=== PATIENT | male | born 1990 | race Two or more races ===

== ENCOUNTER 2017-09-12 18:27 | Emergency (ER) | payer OTHER ==
[2017-09-12 18:33] VITALS: BMI 45.8
[2017-09-12] MEDS ORDERED: IBUPROFEN 400 MG TABLET (FP) PO ONE (18:33)
--- NOTE | 2017-09-12 19:25 | PDOC ---
History of Present Illness - General History Source: Patient Exam Limitations: No Limitations - History of Present Illness Initial Comments: 09/12/17 20:31 The patient is a 26-year-old male with a significant past medical history of asthma, and presents to the emergency department with fever, nausea, vomiting, and diffuse abdominal pain since this morning. He reports he spiked a fever twice, and had four episodes of non-bloody vomiting. He also reports an associated sore throat and productive cough with production of green sputum. He denies any sick contacts. The patient denies chest pain, shortness of breath, headache and dizziness. The patient denies chills, diarrhea and constipation. The patient denies dysuria, frequency, urgency and hematuria. Allergies: NKDA Past Surgical History: None reported Social History: No toxic habits reported PCP: Dr. Nichole Raphael <Pearl Mccullough - Last Filed: 09/12/17 20:46> <Andra Worley - Last Filed: 09/12/17 21:11> - General Chief Complaint: Nausea/Vomiting Stated Complaint: FEVER Time Seen by Provider: 09/12/17 19:17 Past History <Pearl Mccullough - Last Filed: 09/12/17 20:46> - Past Medical History Asthma: Yes COPD: No DVT: No - Suicide/Smoking/Psychosocial Hx Smoking History: Never smoked Hx Alcohol Use: Yes (SOCIAL) Drug/Substance Use Hx: No Substance Use Type: None <Andra Worley - Last Filed: 09/12/17 21:11> - Past Medical History Allergies/Adverse Reactions: Allergies Allergy/AdvReac Type Severity Reaction Status Date / Time No Known Allergies Allergy Verified 09/12/17 18:32 Home Medications: Ambulatory Orders Oseltamivir Phosphate [Tamiflu] 75 mg PO BID #10 capsule 09/12/17 Review of Systems - Review of Systems Able to Perform ROS?: Yes Comments:: 09/12/17 20:31 GENERAL/CONSTITUTIONAL: (+) Fever. No chills. No weakness. HEAD, EYES, EARS, NOSE AND THROAT: No change in vision. No ear pain or discharge. (+) Sore throat. CARDIOVASCULAR: No chest pain or shortness of breath. RESPIRATORY: (+) Cough. No wheezing, or hemoptysis. GASTROINTESTINAL: (+) Abdominal pain. (+) Nausea, (+) vomiting. No diarrhea or constipation. GENITOURINARY: No dysuria, frequency, or change in urination. MUSCULOSKELETAL: No joint or muscle swelling or pain. No neck or back pain. SKIN: No rash NEUROLOGIC: No headache, vertigo, loss of consciousness, or change in strength/ sensation. ENDOCRINE: No increased thirst. No abnormal weight change. HEMATOLOGIC/LYMPHATIC: No anemia, easy bleeding, or history of blood clots. ALLERGIC/IMMUNOLOGIC: No hives or skin allergy. <Pearl Mccullough - Last Filed: 09/12/17 20:46> *Physical Exam - Vital Signs Last Vital Signs Temp Pulse Resp BP Pulse Ox 101.7 F H 128 H 22 130/82 98 09/12/17 18:28 09/12/17 18:28 09/12/17 18:28 09/12/17 18:28 09/12/17 18:28 - Physical Exam Comments: 09/12/17 20:46 GENERAL: Awake, alert, and fully oriented, in no acute distress HEAD: No signs of trauma EYES: PERRLA, EOMI, sclera anicteric, conjunctiva clear ENT: Auricles normal inspection, hearing grossly normal, nares patent, oropharynx clear without exudates. NECK: Normal ROM, supple, no lymphadenopathy, JVD, or masses LUNGS: (+) Patchy wheezes bilaterally. No crackles HEART: Regular rate and rhythm, normal S1 and S2, no murmurs, rubs or gallops ABDOMEN: Soft, nontender, normoactive bowel sounds. No guarding, no rebound. No masses EXTREMITIES: Normal range of motion, no edema. No clubbing or cyanosis. No cords, erythema, or tenderness NEUROLOGICAL: Cranial nerves II through XII grossly intact. Normal speech, normal gait SKIN: Warm, Dry, normal turgor, no rashes or lesions noted. <Pearl Mccullough - Last Filed: 09/12/17 20:46> - Vital Signs Last Vital Signs Temp Pulse Resp BP Pulse Ox 101.7 F H 128 H 22 130/82 98 09/12/17 18:28 09/12/17 18:28 09/12/17 18:28 09/12/17 18:28 09/12/17 18:28 <Andra Worley - Last Filed: 09/12/17 21:11> ED Treatment Course - LABORATORY CBC & Chemistry Diagram: 09/12/17 19:45 09/12/17 19:45 - ADDITIONAL ORDERS Additional order review: 09/12/17 19:01 Influenza Types A,B Antigen (ANTHONY) - Final Nasopharyngeal Swab - Final 09/12/17 19:45 RBC 5.28 MCV 83.9 MCHC 34.1 RDW 13.7 MPV 9.3 Neutrophils % 82.2 Lymphocytes % 5.7 L Monocytes % 10.5 H Eosinophils % 0.9 Basophils % 0.7 - Medications Given in the ED: ED Medications Discontinued Medications Generic Name Dose Route Start Last Admin Trade Name Freq PRN Reason Stop Dose Admin Acetaminophen/Codeine Phosphate 3 tab 09/12/17 19:29 09/12/17 20:14 Tylenol # 3 - PO 09/12/17 19:30 3 tab ONCE ONE Administration Albuterol/Ipratropium 1 amp 09/12/17 19:29 09/12/17 19:55 Duoneb - NEB 09/12/17 19:30 1 amp ONCE ONE Administration Ibuprofen 400 mg 09/12/17 18:33 09/12/17 18:33 Motrin - PO 09/12/17 18:34 400 mg NOW ONE Administration Oseltamivir Phosphate 75 mg 09/12/17 20:19 09/12/17 20:23 Tamiflu - PO 09/12/17 20:20 75 mg ONCE ONE Administration Sodium Chloride 1,000 ml 09/12/17 19:29 09/12/17 19:55 Normal Saline - IV 09/12/17 19:30 1,000 ml ONCE ONE Administration <Pearl Mccullough - Last Filed: 09/12/17 20:46> - LABORATORY CBC & Chemistry Diagram: 09/12/17 19:45 09/12/17 19:45 - Medications Given in the ED: ED Medications Discontinued Medications Generic Name Dose Route Start Last Admin Trade Name Freq PRN Reason Stop Dose Admin Ibuprofen 400 mg 09/12/17 18:33 09/12/17 18:33 Motrin - PO 09/12/17 18:34 400 mg NOW ONE Administration <Andra Worley - Last Filed: 09/12/17 21:11> Medical Decision Making - Medical Decision Making 09/12/17 20:34 Pt has influenza; his cxr appears normal and he has normal CBC; chem pending. He received IVF, and he is feeling better after motrin and tyl#3 09/12/17 21:11 chem normal and pt feeling better; he was discharged home. <Andra Worley - Last Filed: 09/12/17 21:11> *DC/Admit/Observation/Transfer - Attestations Scribe Attestion: 09/12/17 20:31 Documentation prepared by Pearl Mccullough, acting as medical fee clerk for Andra Worley MD/DO. <Pearl Mccullough - Last Filed: 09/12/17 20:46> - Discharge Dispostion Admit: No <Andra Worley - Last Filed: 09/12/17 21:11> Diagnosis at time of Disposition: Influenza - Discharge Dispostion Disposition: HOME Condition at time of disposition: Improved - Prescriptions Prescriptions: Oseltamivir Phosphate [Tamiflu] 75 mg PO BID #10 capsule - Referrals Referrals: Nichole Raphael MD [Primary Care Provider] - - Patient Instructions Printed Discharge Instructions: Influenza - Post Discharge Activity
[2017-09-12] MEDS ORDERED: SODIUM CHLORIDE 0.9% 500 ML INFUS.BAG IV ONE (19:29)
[2017-09-12] MEDS ORDERED: ACETAMINOPHEN WITH CODEINE 300MG/30MG TABLET PO ONE (19:29)
[2017-09-12] MEDS ORDERED: ALBUTEROL SO4 2.5/IPRATROPIUM 0.5 INH SOL 3 ML VIAL.NEB. NEB ONE ×2 (19:29→19:39)
[2017-09-12 19:52] LABS: BASO % 0.7 % (0-2.0); EOS % 0.9 % (0-4.5); HEMATOCRIT 44.3 % (35.4-49); HEMOGLOBIN 15.1 GM/dL (11.7-16.9); LYMPH % 5.7 % (8-40); MCH 28.6 pg (25.7-33.7); MCHC 34.1 g/dl (32.0-35.9); MEAN CELL VOLUME 83.9 fl (80-96); MEAN PLT VOLUME 9.3 fl (7.5-11.1); MONO % 10.5 % (3.8-10.2); NEUT % 82.2 % (42.8-82.8); PLATELET COUNT 232 K/MM3 (134-434); RBC 5.28 M/mm3 (4.00-5.60); RDW 13.7 % (11.9-15.9); WHITE BLOOD COUNT 8.1 K/mm3 (4.0-10.0)
[2017-09-12] MEDS ORDERED: ACETAMINOPHEN WITH CODEINE 300MG/30MG TABLET ONE (20:12)
[2017-09-12] MEDS ORDERED: OSELTAMIVIR PHOSPHATE 75 MG CAPSULE PO ONE (20:19)
[2017-09-12] MEDS ORDERED: OSELTAMIVIR PHOSPHATE 75 MG CAPSULE ONE (20:22)
[2017-09-12 20:23] LABS: ALBUMIN 4.3 g/dl (3.4-5.0); ALK PHOS 71 U/L (45-117); ANION GAP 6 (8-16); BILIRUBIN,TOTAL 0.7 mg/dL (0.2-1.0); BLOOD UREA NITROGEN 10 mg/dL (7-18); CALCIUM 8.4 mg/dL (8.5-10.1); CHLORIDE 104 mmol/L (98-107); CO2 25 mmol/L (21-32); CREATININE 1.1 mg/dL (0.7-1.3); GLUCOSE,RANDOM 96 mg/dL (74-106); SGOT/AST 33 U/L (15-37); SGPT/ALT 66 U/L (12-78); SODIUM 135 mmol/L (136-145); TOT PROT 7.7 g/dl (6.4-8.2)
[2017-09-12 20:41] VITALS: BP 128/72; PULSE 82; TEMP 99.1
== END 2017-09-12 20:49 | disposition home or self-care (01) ==
LOC: JER 18:27
PROC: 3E0F7GC Introduction of Other Therapeutic Substance into Respiratory Tract, Via Natural or Artificial Opening (ICD-10-PCS; principal; 2017-09-12)
DX: J09.X2 Influenza due to identified novel influenza A virus with other respiratory manifestations (principal)
CPT/HCPCS: 36415; 71046-TC; 80053; 85025; 87804; 94640; 99283-25

== ENCOUNTER 2018-07-17 17:10 | Emergency (ER) | payer OTHER ==
[2018-07-17 17:17] VITALS: BP 135/81; PULSE 78; TEMP 99.1; BMI 48.7
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
== END 2018-07-17 17:49 | disposition home or self-care (01) ==
LOC: JERFT 17:10
DX: K64.4 Residual hemorrhoidal skin tags (principal)
CPT/HCPCS: 99281-25

== ENCOUNTER 2018-12-02 02:26 | Emergency (ER) | payer OTHER ==
[2018-12-02 03:01] VITALS: BP 141/95; PULSE 90; TEMP 98.3; BMI 47.0
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
== END 2018-12-02 05:11 | disposition home or self-care (01) ==
LOC: JER 02:26
DX: S06.0X0A Concussion without loss of consciousness, initial encounter (principal); Y04.2XXA Assault by strike against or bumped into by another person, initial encounter; Y93.89 Activity, other specified; Y92.89 Other specified places as the place of occurrence of the external cause; Y99.8 Other external cause status; Y07.9 Unspecified perpetrator of maltreatment and neglect
CPT/HCPCS: 70450-TC; 70486-TC; 72125-TC; 99281-25

== ENCOUNTER 2019-04-14 20:27 | Emergency (ER) | payer OTHER | END 2019-04-14 22:18 | disposition home or self-care (01) | LOC: JER 20:27 ==

== ENCOUNTER 2019-04-16 21:12 | Emergency (ER) | payer OTHER ==
[2019-04-16 21:24] VITALS: BP 135/73; PULSE 130; TEMP 99.9; BMI 51.7
--- NOTE | 2019-04-16 21:46 | PDOC ---
History of Present Illness - General History Source: Patient Exam Limitations: No Limitations - History of Present Illness Initial Comments: 04/16/19 22:15 28M w/ pmh of asthma, HTN presents to [facility] with complaint of nausea and vomiting x4days w/a severe temporal BATEMAN(10/10 severity), sore throat, nonproductive cough, fever(100.5F at home). Emesis was green with streaks of blood. Tried liquid Advil w/ little relief. Was seen in [facility] two days prior and received acetaminophen which provided little relief. Denies rhinorrhea , sick contacts. Does not have an albuterol inhaler at home. Went to [place] 2mo prior. Works in [employer]. Associated Symptoms: reports: cough, fever/chills, nausea/vomiting. denies: syncope, weakness <Claude Nicole - Last Filed: 04/17/19 00:30> <Leo Thibodeaux - Last Filed: 04/17/19 23:07> - General Chief Complaint: SIRS, Suspected/Possible Stated Complaint: Headache and fever Time Seen by Provider: 04/16/19 21:43 Past History - Travel Traveled outside of the country in the last 30 days: No If so, where?: travelled to [place] 2mo prior Close contact w/someone who was outside of country & ill: No - Past Medical History Asthma: Yes Cancer: No COPD: No DVT: No HTN: Yes - Surgical History Abdominal Surgery: No - Family Disease History Family Disease History: Diabetes: Father (HTN), Mother (HTN), Heart Disease: Father, Mother - Suicide/Smoking/Psychosocial Hx Smoking History: Never smoked Have you smoked in the past 12 months: No Information on smoking cessation initiated: No Hx Alcohol Use: Yes (every weekend) Drug/Substance Use Hx: No Substance Use Type: None <Claude Nicole - Last Filed: 04/17/19 00:30> <Leo Thibodeaux - Last Filed: 04/17/19 23:07> - Past Medical History Allergies/Adverse Reactions: Allergies Allergy/AdvReac Type Severity Reaction Status Date / Time No Known Allergies Allergy Verified 04/16/19 21:16 Home Medications: Ambulatory Orders Phenylephrine HCl/[place] Butter [Preparation H Suppository] 1 each RC PRN PRN # 24 supp.rect 07/17/18 Pramoxine HCl/Zinc Oxide [Hemorrhoid 1%-12.5% Ointment] 1 applic TP PRN #1 tube 07/17/18 Albuterol Sulfate Inhaler - [Ventolin HFA Inhaler -] 2 inh PO Q4H PRN #1 inh Amoxicillin - [Amoxicillin 500mg Capsule -] 500 mg PO TID #20 capsule 04/17/19 Review of Systems - Review of Systems Able to Perform ROS?: Yes Is the patient limited Chinese proficient: No Constitutional: Yes: Chills, Fever HEENTM: Yes: Throat Pain, Difficulty Swallowing. No: Eye Pain, Blurred Vision, Double Vision, Nose Congestion Respiratory: Yes: Cough. No: Orthopnea, Shortness of Breath, Productive cough Cardiac (ROS): No: Chest Pain, Irregular Heart Rate, Syncope ABD/GI: Yes: Difficulty Swallowing, Nausea, Vomiting, Other (focal epigastric pain). No: Abdominal Distended, Constipated, Diarrhea : No: Burning, Dysuria Musculoskeletal: No: Muscle Weakness Integumentary: No: Sweating Neurological: Yes: Headache (temporal) <Claude Nicole - Last Filed: 04/17/19 00:30> *Physical Exam - Vital Signs Last Vital Signs Temp Pulse Resp BP Pulse Ox 99.9 F H 130 H 16 135/73 100 04/16/19 21:16 04/16/19 21:16 04/16/19 21:16 04/16/19 21:16 04/16/19 21:16 - Physical Exam General Appearance: No: Apparent Distress HEENT: positive: Tonsillar Exudate (scant purulent exudate to b/l tonsils), Tonsillar Erythema. negative: Pale Conjunctivae, Photophobia, Scleral Icterus ( R), Scleral Icterus (L), Rhinorrhea Neck: positive: Trachea midline, Supple. negative: Tender, Lymphadenopathy (R) , Lymphadenopathy (L) Respiratory/Chest: positive: Wheezing (expiratory). negative: Chest Tender, Respiratory Distress, Labored Respiration, Decreased Breath Sounds Cardiovascular: positive: Regular Rate, S1, S2, Tachycardia Gastrointestinal/Abdominal: positive: Soft. negative: Distended, Guarding Extremity: negative: Swelling, Calf Tenderness Integumentary: positive: Dry, Warm Neurologic: positive: Fully Oriented, Alert <Claude Nicole - Last Filed: 04/17/19 00:30> - Vital Signs Last Vital Signs Temp Pulse Resp BP Pulse Ox 99.9 F H 130 H 16 135/73 97 04/16/19 21:16 04/16/19 21:16 04/16/19 21:16 04/16/19 21:16 04/16/19 23:55 <MoreliaLeo - Last Filed: 04/17/19 23:07> ED Treatment Course - LABORATORY CBC & Chemistry Diagram: 04/16/19 22:04 04/16/19 22:04 <Claude Nicole - Last Filed: 04/17/19 00:30> - LABORATORY CBC & Chemistry Diagram: 04/16/19 22:04 04/16/19 22:04 - ADDITIONAL ORDERS Additional order review: 04/16/19 22:20 Blood Culture - Preliminary Blood - Peripheral Venous NO GROWTH OBTAINED AFTER 24 HOURS, INCUBATION TO CONTINUE FOR 4 DAYS. 04/16/19 22:20 Blood Culture - Preliminary Blood - Peripheral Venous NO GROWTH OBTAINED AFTER 24 HOURS, INCUBATION TO CONTINUE FOR 4 DAYS. 04/16/19 22:38 Throat Culture - Preliminary Throat NO BETA HEMOLYTIC STREPTOCOCCI ISOLATED 04/16/19 22:04 RBC 4.91 MCV 82.4 MCHC 34.7 RDW 13.8 MPV 8.4 Neutrophils % 66.7 Lymphocytes % 18.2 D Monocytes % 13.6 H Eosinophils % 0.9 Basophils % 0.6 - RADIOLOGY Radiology Studies Ordered: Category Date Time Status CHEST X-RAY PORTABLE* [RAD] Stat Radiology 04/16/19 21:56 Completed - Medications Given in the ED: ED Medications Discontinued Medications Generic Name Dose Route Start Last Admin Trade Name Freq PRN Reason Stop Dose Admin Acetaminophen 1,000 mg 04/16/19 21:57 04/16/19 22:28 Ofirmev Injection - IVPB 04/16/19 21:58 1,000 mg ONCE ONE Administration Ketorolac Tromethamine 15 mg 04/16/19 23:58 04/17/19 00:19 Toradol Injection - IM 04/16/19 23:59 15 mg ONCE ONE Administration Ondansetron HCl 4 mg 04/16/19 22:13 04/16/19 22:30 Zofran Injection IVPUSH 04/16/19 22:14 4 mg ONCE ONE Administration Sodium Chloride 1,000 ml 04/16/19 21:57 04/16/19 22:28 Normal Saline - IV 04/16/19 21:58 1,000 ml ONCE ONE Administration <Leo Thibodeaux - Last Filed: 04/17/19 23:07> Medical Decision Making - Medical Decision Making 04/16/19 22:31 - fu CBC, CMP, lactate, BCX, UA - fu serology for strep, lyme - fu CXR - administer zofran, ofirmev, 1L NS 04/17/19 00:06 - strep neg -- but CENTOR ~3, will send amoxillicin x10d to pharmacy - still endorsing BATEMAN(04/09 severity), will administer toradol 15mg 04/17/19 00:30 - signed out to Dr Palomares - patient will likely be discharged home if headache improves after Toradol <Claude Nicole - Last Filed: 04/17/19 00:30> *DC/Admit/Observation/Transfer <Claude Nicole - Last Filed: 04/17/19 00:30> <Leo Thibodeaux - Last Filed: 04/17/19 23:07> Diagnosis at time of Disposition: Streptococcal pharyngitis - Discharge Dispostion Disposition: HOME Condition at time of disposition: Good - Prescriptions Prescriptions: Amoxicillin - [Amoxicillin 500mg Capsule -] 500 mg PO TID #20 capsule - Patient Instructions Printed Discharge Instructions: DI for Strep Throat Additional Instructions: You were evaluated for headache, fever, nausea, vomiting, sore throat. When we examined you, we noticed that you had some swelling and exudate from your tonsils concerning for strep throat. Labwork showed a mild increase in you white blood cell count, suggestive of an infection that is most likely viral. Your headache improved with pain medications acetaminophen and toradol. If you have any fevers, please use more tylenol as indicated on the bottle. Please drink a lot of fluids. See your primary doctor in the next 7 days for further care. We have sent a prescription for an antibiotic, please take it twice a day for 10 days, and please take the full course and do not skip doses. Please return to the ED if you experience: - fever of greater than 100.3F that does not improve with Tylenol - inability to tolerate ANY food or drink by mouth - severe confusion - fever with severe neck pain
[2019-04-16] MEDS ORDERED: ACETAMINOPHEN 1000 MG/100 ML VIAL (NON FORMULARY) IVPB ONE (21:57)
[2019-04-16] MEDS ORDERED: SODIUM CHLORIDE 0.9% 1000 ML INFUS.BAG IV ONE (21:57)
[2019-04-16] MEDS ORDERED: ONDANSETRON 4 MG/2 ML VIAL IVPUSH ONE (22:13)
[2019-04-16 22:22] LABS: BASO % 0.6 % (0-2.0); EOS % 0.9 % (0-4.5); HEMATOCRIT 40.5 % (35.4-49); HEMOGLOBIN 14.1 GM/dL (11.7-16.9); LYMPH % 18.2 % (8-40); MCH 28.6 pg (25.7-33.7); MCHC 34.7 g/dl (32.0-35.9); MEAN CELL VOLUME 82.4 fl (80-96); MEAN PLT VOLUME 8.4 fl (7.5-11.1); MONO % 13.6 % (3.8-10.2); NEUT % 66.7 % (42.8-82.8); PLATELET COUNT 258 K/MM3 (134-434); RBC 4.91 M/mm3 (4.00-5.60); RDW 13.8 % (11.9-15.9); WHITE BLOOD COUNT 12.6 K/mm3 (4.0-10.0)
--- NOTE | 2019-04-16 22:25 | PDOC ---
Documentation entered by Chelo Driscoll SCRIBE, acting as scribe for Leo Thibodeaux MD. Leo Thibodeaux MD: This documentation has been prepared by the Yamila sanz Xhesika, SCRIBE, under my direction and personally reviewed by me in its entirety. I confirm that the documentation accurately reflects all work, treatment, procedures, and medical decision making performed by me. Attending Attestation - Resident Resident Name: Claude Nicole - ED Attending Attestation I have performed the following: I have examined & evaluated the patient, The case was reviewed & discussed with the resident, I agree w/resident's findings & plan, Exceptions are as noted - HPI HPI: 04/16/19 22:14 The patient is a 28 year old male with a PMH of HTN and asthma who presents to the ED with 4 days of nausea and vomiting. Patient states he endorsed 6 episodes of greenish emesis with streaks of blood today associated with fever ( 100.5 at home), sore throat, cough, abdominal pain, and a 10/10 temporal headache. The patient was seen here yesterday for similar symptoms and was discharged home with relief of symptoms and normal labs. Patient states he drinks every weekend and his last drink was Thursday. The patient denies blurry vision, chest pain, shortness of breath, and dizziness. Denies fever, chills, diarrhea and constipation. Denies dysuria, frequency, urgency and hematuria. Allergies:, NKDA PCP: Kushal Burdick - Physicial Exam PE: 04/16/19 22:15 Vitals: Triage Vital signs reviewed General Appearance: no acute distress, well nourished well developed, Head: Atraumatic, normocephalic Eyes: Pupils equal reactive round, extraocular movement intact Ears: TM's normal bilaterally; Nose: Nares patent bilaterally;no nasal congestion Throat: (+) exudates to tonsils Neck: Supple;No Nuchal rigidity Chest Wall: Nontender Cardiac: Regular rate and rhythm, no murmurs, no rubs, no gallops, Lungs: Clear to auscultation bilateral, good air movement bilaterally, Abdomen: Soft, nondistended, normal bowel sounds, nontender to palpation Extremities: Full range of motion to all extremities, no cyanosis, clubbing, or edema Skin: Warm and dry, no rashes or lesions, no petechiae Neuro: AOX3; Cranial Nerves 2-12 grossly c intact, Strength intact to all extremities, Sensation intact to all extremities, gait normal - Medical Decision Making 04/17/19 01:41 Patient reports with fever chills body ache and sore throat. Rapid strep again was negative however multiple exudates noted on tonsils concerning for a exudate Laboratory analysis is grossly unchanged from 2 days ago status post Tylenol and fluids patient feels much better tolerating fluids at this point we'll treat with ten-day course of amoxicillin he will return to ED for any severe worsening symptoms or for any concerns Headache has improved neck is supple low suspicion for meningitis Findings, the need for follow-up and strict return instructions discussed with patient.
[2019-04-16] MEDS ORDERED: ACETAMINOPHEN INJECTION 100 ML IVPB ONE (22:27)
[2019-04-16] MEDS ORDERED: ONDANSETRON 4 MG/2 ML VIAL ONE (22:29)
[2019-04-16 23:01] LABS: ALBUMIN 3.5 g/dl (3.4-5.0); BILIRUBIN,TOTAL 0.8 mg/dL (0.2-1); BLOOD UREA NITROGEN 12.3 mg/dL (7-18); POTASSIUM 3.5 mmol/L (3.5-5.1); TOT PROT 7.4 g/dl (6.4-8.2)
[2019-04-16 23:38] LABS: ANISOCYTOSIS 0; MACROCYTOSIS 0; PLATELET ESTIMATE NORMAL
[2019-04-16] MEDS ORDERED: KETOROLAC TROMETHAMINE 30 MG/1 ML VIAL IM ONE (23:58)
[2019-04-17] MEDS ORDERED: KETOROLAC TROMETHAMINE 15 MG/ML VIAL ONE (00:14)
--- NOTE | 2019-04-17 00:42 | PDOC ---
*Physical Exam - Vital Signs Last Vital Signs Temp Pulse Resp BP Pulse Ox 99.9 F H 130 H 16 135/73 97 04/16/19 21:16 04/16/19 21:16 04/16/19 21:16 04/16/19 21:16 04/16/19 23:55 - Physical Exam General Appearance: Yes: Nourished, Appropriately Dressed. No: Apparent Distress HEENT: positive: EOMI, Normal Voice, Symmetrical, Pharyngeal Erythema, Tonsillar Erythema, Nasal Congestion, Hearing Grossly Normal. negative: Muffled /Hoarse voice, Tonsillar Exudate, Excessive drooling, Thrush Neck: positive: Normal Thyroid, Supple. negative: Tender, Lymphadenopathy (R), Lymphadenopathy (L) Respiratory/Chest: positive: Lungs Clear, Normal Breath Sounds. negative: Respiratory Distress, Crackles, Rales, Rhonchi Cardiovascular: positive: Regular Rhythm, Regular Rate. negative: Edema, Murmur Gastrointestinal/Abdominal: positive: Normal Bowel Sounds, Soft. negative: Tender Musculoskeletal: positive: Normal Inspection. negative: CVA Tenderness Extremity: positive: Normal Capillary Refill, Normal Inspection, Normal Range of Motion. negative: Tender Integumentary: positive: Normal Color, Dry, Warm Neurologic: positive: Fully Oriented, Alert, Normal Mood/Affect, Normal Response <Gerardo Palomares - Last Filed: 04/17/19 07:27> - Vital Signs Last Vital Signs Temp Pulse Resp BP Pulse Ox 99.9 F H 130 H 16 135/73 97 04/16/19 21:16 04/16/19 21:16 04/16/19 21:16 04/16/19 21:16 04/16/19 23:55 <Leo Thibodeaux - Last Filed: 04/17/19 23:06> ED Treatment Course - LABORATORY CBC & Chemistry Diagram: 04/16/19 22:04 04/16/19 22:04 - ADDITIONAL ORDERS Additional order review: Laboratory Results 04/16/19 04/16/19 22:20 22:04 Sodium 136 Potassium 3.5 Chloride 102 Carbon Dioxide 26 Anion Gap 8 BUN 12.3 Creatinine 1.0 Est GFR (CKD-EPI)AfAm 119.02 Est GFR (CKD-EPI)NonAf 102.69 Random Glucose 87 Lactic Acid 0.6 Calcium 9.0 Total Bilirubin 0.8 AST 27 ALT 58 Alkaline Phosphatase 81 Total Protein 7.4 Albumin 3.5 04/16/19 22:04 RBC 4.91 MCV 82.4 MCHC 34.7 RDW 13.8 MPV 8.4 Neutrophils % 66.7 Lymphocytes % 18.2 D Monocytes % 13.6 H Eosinophils % 0.9 Basophils % 0.6 - Medications Given in the ED: ED Medications Discontinued Medications Generic Name Dose Route Start Last Admin Trade Name Freq PRN Reason Stop Dose Admin Acetaminophen 1,000 mg 04/16/19 21:57 04/16/19 22:28 Ofirmev Injection - IVPB 04/16/19 21:58 1,000 mg ONCE ONE Administration Ketorolac Tromethamine 15 mg 04/16/19 23:58 04/17/19 00:19 Toradol Injection - IM 04/16/19 23:59 15 mg ONCE ONE Administration Ondansetron HCl 4 mg 04/16/19 22:13 04/16/19 22:30 Zofran Injection IVPUSH 04/16/19 22:14 4 mg ONCE ONE Administration Sodium Chloride 1,000 ml 04/16/19 21:57 04/16/19 22:28 Normal Saline - IV 04/16/19 21:58 1,000 ml ONCE ONE Administration <Gerardo Palomares - Last Filed: 04/17/19 07:27> - LABORATORY CBC & Chemistry Diagram: 04/16/19 22:04 04/16/19 22:04 - ADDITIONAL ORDERS Additional order review: 04/16/19 22:20 Blood Culture - Preliminary Blood - Peripheral Venous NO GROWTH OBTAINED AFTER 24 HOURS, INCUBATION TO CONTINUE FOR 4 DAYS. 04/16/19 22:20 Blood Culture - Preliminary Blood - Peripheral Venous NO GROWTH OBTAINED AFTER 24 HOURS, INCUBATION TO CONTINUE FOR 4 DAYS. 04/16/19 22:38 Throat Culture - Preliminary Throat NO BETA HEMOLYTIC STREPTOCOCCI ISOLATED 04/16/19 22:04 RBC 4.91 MCV 82.4 MCHC 34.7 RDW 13.8 MPV 8.4 Neutrophils % 66.7 Lymphocytes % 18.2 D Monocytes % 13.6 H Eosinophils % 0.9 Basophils % 0.6 - RADIOLOGY Radiology Studies Ordered: Category Date Time Status CHEST X-RAY PORTABLE* [RAD] Stat Radiology 04/16/19 21:56 Completed - Medications Given in the ED: ED Medications Discontinued Medications Generic Name Dose Route Start Last Admin Trade Name Freq PRN Reason Stop Dose Admin Acetaminophen 1,000 mg 04/16/19 21:57 04/16/19 22:28 Ofirmev Injection - IVPB 04/16/19 21:58 1,000 mg ONCE ONE Administration Ketorolac Tromethamine 15 mg 04/16/19 23:58 04/17/19 00:19 Toradol Injection - IM 04/16/19 23:59 15 mg ONCE ONE Administration Ondansetron HCl 4 mg 04/16/19 22:13 04/16/19 22:30 Zofran Injection IVPUSH 04/16/19 22:14 4 mg ONCE ONE Administration Sodium Chloride 1,000 ml 04/16/19 21:57 04/16/19 22:28 Normal Saline - IV 04/16/19 21:58 1,000 ml ONCE ONE Administration <Leo Thibodeaux - Last Filed: 04/17/19 23:06> Medical Decision Making - Medical Decision Making 04/17/19 00:42 Signed out to me by Dr. Nicole. Rapid strep negative, but has fever and exudates. Plan to discharge home with amoxicillin and f/u with PCP. <Gerardo Palomares - Last Filed: 04/17/19 07:27> *DC/Admit/Observation/Transfer - Discharge Dispostion Decision to Admit order: No <Gerardo Palomares - Last Filed: 04/17/19 07:27> <Leo Thibodeaux - Last Filed: 04/17/19 23:06> Diagnosis at time of Disposition: Streptococcal pharyngitis - Discharge Dispostion Disposition: HOME Condition at time of disposition: Good - Prescriptions Prescriptions: Amoxicillin - [Amoxicillin 500mg Capsule -] 500 mg PO TID #20 capsule - Referrals - Patient Instructions Printed Discharge Instructions: DI for Strep Throat Additional Instructions: You were evaluated for headache, fever, nausea, vomiting, sore throat. When we examined you, we noticed that you had some swelling and exudate from your tonsils concerning for strep throat. Labwork showed a mild increase in you white blood cell count, suggestive of an infection that is most likely viral. Your headache improved with pain medications acetaminophen and toradol. If you have any fevers, please use more tylenol as indicated on the bottle. Please drink a lot of fluids. See your primary doctor in the next 7 days for further care. We have sent a prescription for an antibiotic, please take it twice a day for 10 days, and please take the full course and do not skip doses. Please return to the ED if you experience: - fever of greater than 100.3F that does not improve with Tylenol - inability to tolerate ANY food or drink by mouth - severe confusion - fever with severe neck pain - Post Discharge Activity
[2019-04-19 18:08] LABS: BABESIA MICROTI ANTIBODY IGG <1:10 (Neg:<1:10); BABESIA MICROTI ANTIBODY IGM <1:10 (Neg:<1:10)
== END 2019-04-17 01:01 | disposition home or self-care (01) ==
LOC: JER 21:12
PROC: 3E0233Z Introduction of Anti-inflammatory into Muscle, Percutaneous Approach (ICD-10-PCS; principal; 2019-04-16)
PROC: 3E0337Z Introduction of Electrolytic and Water Balance Substance into Peripheral Vein, Percutaneous Approach (ICD-10-PCS; 2019-04-16)
PROC: 3E033NZ Introduction of Analgesics, Hypnotics, Sedatives into Peripheral Vein, Percutaneous Approach (ICD-10-PCS; 2019-04-16)
DX: J02.0 Streptococcal pharyngitis (principal); I10 Essential (primary) hypertension; J45.909 Unspecified asthma, uncomplicated
CPT/HCPCS: 36415; 71045-TC-FY; 80053; 83605; 85025; 86618; 86753; 87040; 87070; 87077; 87880; 96372; 96374; 96375; 99283-25; J0131; J7030

== ENCOUNTER 2019-09-04 05:48 | Emergency (ER) | payer OTHER ==
[2019-09-04 06:24] VITALS: BMI 28.5
[2019-09-04] MEDS ORDERED: ACETAMINOPHEN 500 MG TABLET (FP) PO ONE (06:29)
[2019-09-04] MEDS ORDERED: ACETAMINOPHEN 325 MG TABLET (FP) ONE (06:30)
[2019-09-04] MEDS ORDERED: ALBUTEROL SO4 2.5/IPRATROPIUM 0.5 INH SOL 3 ML VIAL.NEB. NEB ONE ×2 (07:37→07:56)
--- NOTE | 2019-09-04 07:38 | PDOC ---
Attending Attestation - Resident Resident Name: Sha Garcia - ED Attending Attestation I have performed the following: I have examined & evaluated the patient, The case was reviewed & discussed with the resident, I agree w/resident's findings & plan, Exceptions are as noted - HPI HPI: 09/04/19 08:34 28-year-old male with a history of asthma (never intubated), hypertension, daily smoker presents to the emergency department with 2 days of subjective fevers, sore throat, runny nose, cough, wheezing and one episode of vomiting this morning. Patient is concerned he has the flu. Denies any sick contacts or travel. States he took Advil liquid gels with some relief of his symptoms. Denies any headaches, dizziness, focal weakness or numbness, chest pain, shortness of breath, abdominal pain, urinary symptoms, lower extremity edema. - Physicial Exam PE: 09/04/19 08:40 GENERAL: Awake, alert, and fully oriented, in no acute distress. Non toxic, well appearing EYES: PERRLA, EOMI, sclera anicteric, conjunctiva clear ENT: Auricles normal inspection, hearing grossly normal, nares patent, oropharynx with mild posterior erythema but clear without exudates. Moist mucosa NECK: Normal ROM, supple, no lymphadenopathy, JVD, or masses LUNGS: Breath sounds equal, clear to auscultation bilaterally. No wheezes, and no crackles HEART: Regular rate and rhythm, normal S1 and S2, no murmurs, rubs or gallops ABDOMEN: Soft, nontender, normoactive bowel sounds. No guarding, no rebound. No masses EXTREMITIES: Normal range of motion, no edema. No clubbing or cyanosis. No cords, erythema, or tenderness NEUROLOGICAL: Normal speech, cranial nerves intact, equal strength and sensation b/l SKIN: Warm, Dry, normal turgor, no rashes or lesions noted. - Medical Decision Making 09/04/19 08:43 28-year-old male with a history of asthma, smoking, hypertension presents the emergency department with likely upper respiratory infection. In light of asthma history, a flu swab was checked which was negative. Patient is feeling better after Tylenol and nebulizer treatment. Supportive treatment discussed with patient. He is clinically stable for discharge home. Will follow-up with his primary care doctor in the [place] in 2 to 3 days. I discussed the physical exam findings, ancillary test results and final diagnoses with the patient. I answered all of the patient's questions. The patient was satisfied with the care received and felt comfortable with the discharge plan and treatment plan. The patient will call their primary care physician within 24 hours to arrange follow-up and will return to the Emergency Department with any new, persistent or worsening symptoms.
--- NOTE | 2019-09-04 08:08 | PDOC ---
History of Present Illness - General Chief Complaint: Cold Symptoms Stated Complaint: FEVER Time Seen by Provider: 09/04/19 07:20 History Source: Patient Exam Limitations: No Limitations - History of Present Illness Initial Comments: 09/04/19 08:04 28M with a PMH of HTN and asthma who presents to the ER with complaints of fever x 2 days. The patient states that he's had fever, sore throat, cough, and headache without nausea, vomiting, diarrhea, abdominal pain, wheezing, for 2 days. He is unsure of sick contacts. He admits to taking ibuprofen with relief of his fever and symptoms. Past History - Past Medical History Allergies/Adverse Reactions: Allergies Allergy/AdvReac Type Severity Reaction Status Date / Time No Known Allergies Allergy Verified 09/04/19 06:05 Home Medications: Ambulatory Orders Albuterol Sulfate Inhaler - [Ventolin HFA Inhaler -] 2 inh PO Q4H PRN #1 inh Valsartan/Hydrochlorothiazide [Valsartan-Hctz 160-12.5 mg Tab] 1 each PO DAILY 09/04/19 Asthma: Yes Cancer: No COPD: No DVT: No HTN: Yes - Surgical History Abdominal Surgery: No - Psycho Social/Smoking Cessation Hx Smoking History: Current every day smoker Have you smoked in the past 12 months: No Number of Cigarettes Smoked Daily: 20 Information on smoking cessation initiated: No Hx Alcohol Use: No Drug/Substance Use Hx: No Substance Use Type: None Review of Systems - Review of Systems Able to Perform ROS?: Yes Comments:: 09/04/19 08:08 GENERAL/CONSTITUTIONAL: Positive for fevers and chills. No weakness. HEAD, EYES, EARS, NOSE AND THROAT: Positive for sore throat. No change in vision. No ear pain or discharge. CARDIOVASCULAR: No chest pain, palpitations, or lightheadedness. RESPIRATORY: Positive for cough. No wheezing, shortness of breath, or hemoptysis. GASTROINTESTINAL: No nausea, vomiting, diarrhea, constipation, or abdominal pain. GENITOURINARY: No dysuria, frequency, hematuria, or change in urination. MUSCULOSKELETAL: Positive for myalgias. No neck or back pain. SKIN: No rash or lesions. NEUROLOGIC: Positive for headache. No numbness, tingling, weakness, loss of consciousness, or change in strength/sensation. ENDOCRINE: No increased thirst. No abnormal weight change. HEMATOLOGIC/LYMPHATIC: No anemia, easy bleeding, or history of blood clots. ALLERGIC/IMMUNOLOGIC: No hives or skin allergy. Is the patient limited Albanian proficient: No *Physical Exam - Vital Signs Last Vital Signs Temp Pulse Resp BP Pulse Ox 99.4 F 111 H 20 146/62 97 09/04/19 07:28 09/04/19 06:06 09/04/19 06:06 09/04/19 06:06 09/04/19 06:06 - Physical Exam 09/04/19 08:08 GENERAL: Well developed, well nourished. Awake and alert. No acute distress. HEENT: Normocephalic, atraumatic. Hearing grossly normal. Moist mucous membranes. PERRLA, EOMI. No conjunctival pallor. Sclera are non-icteric. NECK: Supple. Full ROM. No JVD. CARDIOVASCULAR: Regular rate and rhythm. No murmurs, rubs, or gallops. PULMONARY: No evidence of respiratory distress. Lungs clear to auscultation bilaterally. No wheezing, rales or rhonchi. ABDOMINAL: Soft. Non-tender. Non-distended. No rebound or guarding. GENITOURINARY: No CVA tenderness bilaterally. MUSCULOSKELETAL: Normal range of motion at all joints. No bony deformities or tenderness. EXTREMITIES: No cyanosis. No clubbing. No edema. No calf tenderness or swelling. SKIN: Warm and dry. Normal capillary refill. No rashes. No jaundice. NEUROLOGICAL: Alert, awake, appropriate. Cranial nerves 2-12 grossly intact. Normal speech. Gait is normal without ataxia. PSYCHIATRIC: Cooperative. Good eye contact. Appropriate mood and affect. ED Treatment Course - Medications Given in the ED: ED Medications Discontinued Medications Generic Name Dose Route Start Last Admin Trade Name Freq PRN Reason Stop Dose Admin Acetaminophen 975 mg 09/04/19 06:29 09/04/19 06:33 Tylenol - PO 09/04/19 06:30 975 mg ONCE ONE Administration Medical Decision Making - Medical Decision Making 09/04/19 08:09 28M with a PMH of asthma and HTN who presents with 2 days of flu-like symptoms. Pt making audible expiratory upper airway noises during exam but was not actually wheezing. Given tylenol PO and is tolerating PO. Will flu swab and dispo appropriately. 09/04/19 08:50 Flu negative. Will d/c with PCP f/u. Discharge - Discharge Information Problems reviewed: Yes Clinical Impression/Diagnosis: Viral illness Condition: Good Disposition: HOME - Admission No - Follow up/Referral - Patient Discharge Instructions Patient Printed Discharge Instructions: DI for Viral Upper Respiratory Infection -- Adult Additional Instructions: Take Motrin or Tylenol for fever. Stay hydrated and drink plenty of fluids. Follow-up with your primary care doctor within 2 to 3 days for further evaluation. Return to the emergency department if you have any new, worsening or concerning symptoms. - Post Discharge Activity
[2019-09-04 08:40] VITALS: BP 119/64; PULSE 93; TEMP 99.2
== END 2019-09-04 09:01 | disposition home or self-care (01) ==
LOC: JER 05:48
PROC: 3E0F7GC Introduction of Other Therapeutic Substance into Respiratory Tract, Via Natural or Artificial Opening (ICD-10-PCS; principal; 2019-09-04)
DX: J06.9 Acute upper respiratory infection, unspecified (principal); B97.89 Other viral agents as the cause of diseases classified elsewhere; I10 Essential (primary) hypertension; Z87.09 Personal history of other diseases of the respiratory system
CPT/HCPCS: 87804; 94640; 99281-25

== ENCOUNTER 2023-05-04 02:53 | Inpatient (IN) | payer OTHER ==
[2023-05-04 03:02] VITALS: BMI 37.6
[2023-05-04] MEDS ORDERED: SODIUM CHLORIDE 0.9% 500 ML INFUS.BAG IV ONE (03:29)
[2023-05-04] MEDS ORDERED: morphine CARPU-JECT 2 MG/1 ML DISP.SYRIN IVPUSH ONE (03:30)
[2023-05-04] MEDS ORDERED: ONDANSETRON 4 MG/2 ML VIAL IVPUSH ONE (03:42)
[2023-05-04] MEDS ORDERED: ONDANSETRON 4 MG/2 ML VIAL ONE (03:55)
[2023-05-04] MEDS ORDERED: ACETAMINOPHEN 1000 MG/100 ML BAG IVPB ONE (04:10)
[2023-05-04] MEDS ORDERED: KETOROLAC TROMETHAMINE 30 MG/1 ML VIAL IVPUSH ONE (04:11)
[2023-05-04] MEDS ORDERED: ACETAMINOPHEN INJECTION 100 ML IVPB ONE (04:19)
[2023-05-04] MEDS ORDERED: KETOROLAC TROMETHAMINE 30 MG/1 ML VIAL ONE (04:20)
[2023-05-04 04:33] LABS: BASO % 0.5 % (0-2.0); EOS % 0.5 % (0-4.5); HEMATOCRIT 41.9 % (35.4-49); HEMOGLOBIN 14.5 GM/dL (11.7-16.9); LYMPH % 18.6 % (8-40); MCH 28.5 pg (25.7-33.7); MCHC 34.6 g/dl (32.0-35.9); MEAN CELL VOLUME 82.5 fl (80-96); MEAN PLT VOLUME 8.6 fl (7.5-11.1); MONO % 10.7 % (3.8-10.2); NEUT % 69.7 % (42.8-82.8); PLATELET COUNT 275 10^3/uL (134-434); RBC 5.08 M/mm3 (4.00-5.60); RDW 14.3 % (11.9-15.9); WHITE BLOOD COUNT 13.5 K/mm3 (4.0-10.0)
[2023-05-04] MEDS ORDERED: AMOX TR/POT CLAV 875MG/125MG TABLETS (FP) PO ONE (04:46)
[2023-05-04 04:51] LABS: POTASSIUM 3.7 mmol/L (3.5-5.1)
[2023-05-04 04:53] LABS: CALCIUM 8.9 mg/dL (8.5-10.1)
[2023-05-04 04:54] LABS: ALBUMIN 3.6 g/dl (3.4-5.0)
[2023-05-04 04:57] LABS: CREATININE 1.1 mg/dL (0.55-1.3)
[2023-05-04 04:58] LABS: TOT PROT 7.5 g/dl (6.4-8.2)
[2023-05-04] MEDS ORDERED: AMOX TR/POT CLAV 875MG/125MG TABLETS (FP) ONE (06:39)
[2023-05-04] MEDS ORDERED: LACTATED RINGERS SOLUTION 1000 ML INFUS.BAG IV ONE (07:18)
[2023-05-04 08:28] LABS: PH,URINE 5.5 (5.0-8.0); URINE APPEARANCE CLEAR; URINE BILIRUBIN 1+ (NEGATIVE); URINE COLOR DK YELLOW; URINE GLUCOSE (UA) NEGATIVE (NEGATIVE); URINE KETONE TRACE (NEGATIVE); URINE LEUK ESTERASE NEGATIVE (NEGATIVE); URINE NITRITE NEGATIVE (NEGATIVE); URINE PROTEIN TRACE (NEGATIVE)
[2023-05-04] MEDS ORDERED: NAPROXEN 250 MG TABLET PO PRN (09:03)
[2023-05-04] MEDS ORDERED: ACETAMINOPHEN 500 MG TABLET (FP) PO PRN (09:03)
[2023-05-04] MEDS: CEFAZOLIN SODIUM 2 GM in DEXTROSE 5%-WATER 100 ML IVPB SCH ×2 (10:08→17:29)
[2023-05-04] MEDS ORDERED: KETOROLAC TROMETHAMINE 15 MG/ML VIAL IVPUSH ONE (15:06)
[2023-05-04] MEDS ORDERED: AMOX TR/POT CLAV 875MG/125MG TABLETS (FP) PO SCH (17:30)
[2023-05-04] MEDS: ACETAMINOPHEN 1000 MG/100 ML BAG IVPB PRN (20:48)
[2023-05-04] MEDS: MELATONIN 5 MG TABLETS PO PRN (20:49)
[2023-05-05] MEDS: CEFAZOLIN SODIUM 2 GM in DEXTROSE 5%-WATER 100 ML IVPB SCH ×3 (02:56→18:16)
[2023-05-05] MEDS: ACETAMINOPHEN 1000 MG/100 ML BAG IVPB PRN ×2 (03:35→13:02)
[2023-05-05 10:02] LABS: BASO % 0.4 % (0-2.0); EOS % 0.9 % (0-4.5); HEMATOCRIT 40.6 % (35.4-49); HEMOGLOBIN 13.4 GM/dL (11.7-16.9); LYMPH % 17.6 % (8-40); MCH 27.7 pg (25.7-33.7); MCHC 33.1 g/dl (32.0-35.9); MEAN CELL VOLUME 83.7 fl (80-96); MONO % 11.3 % (3.8-10.2); NEUT % 69.8 % (42.8-82.8); PLATELET COUNT 252 10^3/uL (134-434); RBC 4.85 M/mm3 (4.00-5.60); WHITE BLOOD COUNT 11.5 K/mm3 (4.0-10.0)
[2023-05-05 10:08] LABS: POTASSIUM 3.9 mmol/L (3.5-5.1)
[2023-05-05 10:10] LABS: CALCIUM 8.7 mg/dL (8.5-10.1)
[2023-05-05 10:11] LABS: BLOOD UREA NITROGEN 10.6 mg/dL (7-18)
[2023-05-05 10:14] LABS: CREATININE 0.9 mg/dL (0.55-1.3)
[2023-05-05] MEDS ORDERED: SODIUM CHLORIDE 1,000 ML IV SCH (10:30)
[2023-05-05] MEDS ORDERED: ALBUTEROL SO4 HFA INHALER IH PRN (14:13)
[2023-05-05] MEDS: NAPROXEN 500 MG TABLET PO SCH ×2 (16:33→21:02)
[2023-05-05] MEDS ORDERED: ACETAMINOPHEN 1000 MG/100 ML BAG IVPB PRN (18:15)
[2023-05-05] MEDS: MELATONIN 5 MG TABLETS PO PRN (21:02)
[2023-05-06] MEDS: CEFAZOLIN SODIUM 2 GM in DEXTROSE 5%-WATER 100 ML IVPB SCH ×2 (01:07→09:46)
[2023-05-06] MEDS ORDERED: ACETAMINOPHEN 1000 MG/100 ML BAG IVPB PRN (07:59)
[2023-05-06 08:47] VITALS: TEMP 98.6
[2023-05-06] MEDS: NAPROXEN 500 MG TABLET PO SCH (09:46)
[2023-05-06 12:49] LABS: BASO % 0.4 % (0-2.0); EOS % 1.6 % (0-4.5); HEMATOCRIT 41.9 % (35.4-49); HEMOGLOBIN 14.2 GM/dL (11.7-16.9); LYMPH % 18.7 % (8-40); MCH 28.2 pg (25.7-33.7); MCHC 33.9 g/dl (32.0-35.9); MEAN CELL VOLUME 83.2 fl (80-96); MEAN PLT VOLUME 8.5 fl (7.5-11.1); NEUT % 69.3 % (42.8-82.8); PLATELET COUNT 274 10^3/uL (134-434); RBC 5.04 M/mm3 (4.00-5.60); RDW 14.3 % (11.9-15.9); WHITE BLOOD COUNT 9.8 K/mm3 (4.0-10.0)
[2023-05-06 13:04] LABS: POTASSIUM 3.9 mmol/L (3.5-5.1)
[2023-05-06 13:08] LABS: CALCIUM 8.9 mg/dL (8.5-10.1)
[2023-05-06 13:09] LABS: ALBUMIN 3.4 g/dl (3.4-5.0); BLOOD UREA NITROGEN 9.7 mg/dL (7-18)
[2023-05-06 13:12] LABS: CREATININE 0.9 mg/dL (0.55-1.3)
[2023-05-06 13:13] LABS: TOT PROT 7.1 g/dl (6.4-8.2)
[2023-05-06 13:14] LABS: BILIRUBIN,TOTAL 0.4 mg/dL (0.2-1)
[2023-05-06 14:49] VITALS: BP 121/57; PULSE 88; RESP 19
== END 2023-05-06 15:03 | disposition home or self-care (01) | DRG 254 ==
LOC: JER 02:53 → JERBED 05:46 → J5S 08:23 → OBSVTOIN 09:02
PROVIDERS: ADMIT Internal Medicine; ATTEND Internal Medicine
DX: R13.19 Other dysphagia (principal); R13.10 Dysphagia, unspecified; I10 Essential (primary) hypertension; E66.9 Obesity, unspecified; R07.0 Pain in throat; Z68.37 Body mass index [BMI] 37.0-37.9, adult
CPT/HCPCS: 0241U-QW; 36415; 70491-TC; 71046-TC-FY; 80048; 80053; 81003; 82962; 83690; 85025; 87040; 87070; 87086; 87651; 93005; 93010; 93306-TC; 99285-25; G0378

== ENCOUNTER 2023-09-05 19:53 | Emergency (ER) | payer OTHER ==
[2023-09-05 19:59] VITALS: BP 133/72; PULSE 102; RESP 18; TEMP 98.8; BMI 42.6
== END 2023-09-05 22:00 | disposition home or self-care (01) ==
LOC: JERFT 19:53
DX: M79.671 Pain in right foot (principal)
CPT/HCPCS: 73630-TC-RT-FY; 99283-25

== ENCOUNTER 2023-10-23 13:28 | Emergency (ER) | payer OTHER ==
[2023-10-23 13:37] VITALS: BP 134/80; PULSE 84; RESP 18; TEMP 98.8; BMI 41.3
[2023-10-23] MEDS ORDERED: LIDOCAINE 2.5%/PRILOCAINE 2.5% (5 Gram/TUBE) TP ONE (14:52)
[2023-10-23] MEDS: LIDOCAINE 2.5%/PRILOCAINE 2.5% 30 GRAM TUBE TP ONE (15:01)
== END 2023-10-23 15:36 | disposition home or self-care (01) ==
LOC: JER 13:28
DX: K64.4 Residual hemorrhoidal skin tags (principal)
CPT/HCPCS: 99283-25

== ENCOUNTER 2023-10-24 23:31 | Emergency (ER) | payer OTHER ==
[2023-10-24 23:40] VITALS: BP 121/83; PULSE 103; RESP 20; TEMP 98.4; BMI 41.3
== END 2023-10-25 01:32 | disposition left against medical advice (07) ==
LOC: JER 23:31
DX: R10.9 Unspecified abdominal pain (principal)
CPT/HCPCS: 99281-25

== ENCOUNTER 2024-04-14 00:35 | Emergency (ER) | payer OTHER ==
[2024-04-14 00:40] VITALS: BP 110/70; PULSE 82; RESP 19; TEMP 98.4; BMI 44.9
[2024-04-14] MEDS: MECLIZINE HCL 25 MG TABLET (FP) PO ONE (02:29)
[2024-04-14] MEDS ORDERED: MECLIZINE HCL 25 MG TABLET (FP) ONE (02:33)
== END 2024-04-14 03:56 | disposition home or self-care (01) ==
LOC: JER 00:35
DX: R42 Dizziness and giddiness (principal); R00.2 Palpitations; R06.02 Shortness of breath; H93.90 Unspecified disorder of ear, unspecified ear
CPT/HCPCS: 99283-25

== ENCOUNTER 2024-04-26 20:36 | Emergency (ER) | payer OTHER ==
[2024-04-26 20:48] VITALS: BP 146/93; PULSE 102; RESP 18; TEMP 98.5; BMI 32.1
[2024-04-26 21:26] LABS: BASO % 0.3 % (0-2.0); EOS % 4.5 % (0-4.5); HEMATOCRIT 43.8 % (35.4-49); HEMOGLOBIN 14.9 GM/dL (11.7-16.9); LYMPH % 22.9 % (8-40); MCH 28.7 pg (25.7-33.7); MCHC 34.2 g/dl (32.0-35.9); MEAN CELL VOLUME 84.1 fl (80-96); MEAN PLT VOLUME 8.4 fl (7.5-11.1); MONO % 8.6 % (3.8-10.2); NEUT % 63.7 % (42.8-82.8); PLATELET COUNT 256 10^3/uL (134-434); RBC 5.21 M/mm3 (4.00-5.60); RDW 13.6 % (11.9-15.9)
[2024-04-26] MEDS ORDERED: ALBUTEROL SO4 2.5/IPRATROPIUM 0.5 INH SOL 3 ML VIAL.NEB. NEB ONE (21:27)
[2024-04-26] MEDS ORDERED: KETOROLAC TROMETHAMINE 30 MG/1 ML VIAL ONE (21:27)
[2024-04-26] MEDS: KETOROLAC TROMETHAMINE 30 MG/1 ML VIAL IVPUSH ONE (21:47)
[2024-04-26] MEDS: SODIUM CHLORIDE 1,000 ML IV STA (21:47)
[2024-04-26] MEDS: ALBUTEROL SO4 2.5/IPRATROPIUM 0.5 INH SOL 3 ML VIAL.NEB. NEB ONE (21:48)
[2024-04-26 22:01] LABS: POTASSIUM 3.8 mmol/L (3.5-5.1)
[2024-04-26 22:03] LABS: ALBUMIN 3.8 g/dl (3.4-5.0); BLOOD UREA NITROGEN 10.6 mg/dL (7-18); CALCIUM 9.2 mg/dL (8.5-10.1)
[2024-04-26 22:06] LABS: CREATININE 0.9 mg/dL (0.55-1.3)
[2024-04-26 22:08] LABS: BILIRUBIN,TOTAL 0.7 mg/dL (0.2-1); TOT PROT 7.2 g/dl (6.4-8.2)
[2024-04-26] MEDS ORDERED: AMPICILLIN NA/SULBACTAM NA 3 GM/100 ML BAG IVPB ONE (22:51)
[2024-04-26] MEDS: AMPICILLIN NA/SULBACTAM NA 3 GM in SODIUM CHLORIDE 100 ML IVPB ONE (23:22)
== END 2024-04-27 00:07 | disposition home or self-care (01) ==
LOC: JER 20:36
PROC: 3E03329 Introduction of Other Anti-infective into Peripheral Vein, Percutaneous Approach (ICD-10-PCS; principal; 2024-04-26)
PROC: 3E0333Z Introduction of Anti-inflammatory into Peripheral Vein, Percutaneous Approach (ICD-10-PCS; 2024-04-26)
PROC: 3E0337Z Introduction of Electrolytic and Water Balance Substance into Peripheral Vein, Percutaneous Approach (ICD-10-PCS; 2024-04-26)
PROC: 3E0F7GC Introduction of Other Therapeutic Substance into Respiratory Tract, Via Natural or Artificial Opening (ICD-10-PCS; 2024-04-26)
DX: R22.0 Localized swelling, mass and lump, head (principal); K04.7 Periapical abscess without sinus; K08.89 Other specified disorders of teeth and supporting structures
CPT/HCPCS: 36415; 70487-TC; 80053; 85025; 94640; 96361; 96365; 96375; 99285-25; Q9967